=== PATIENT | female | born 1985 | race Two or more races ===

== ENCOUNTER 2024-06-15 11:57 | Emergency (ER) | payer OTHER ==
[~2024-06-15] VITALS: Ht 160 cm; Wt 68.9 kg
[2024-06-15] MEDS ORDERED: LABETALOL HCL100 MG (12:08)
[2024-06-15] MEDS ORDERED: ASPERCREME1 EACH (12:08)
[2024-06-15] MEDS ORDERED: PEPCID AC20 MG PO (13:39)
[2024-06-15] MEDS ORDERED: ZOFRAN8 MG PO (13:39)
[2024-06-15] MEDS ORDERED: OSEL75CA PO (13:39)
== END 2024-06-15 14:36 | disposition home or self-care (01) ==
LOC: ER 11:59
DX: O99.512 Diseases of the respiratory system complicating pregnancy, second trimester (principal); J11.1 Influenza due to unidentified influenza virus with other respiratory manifestations; Z3A.17 17 weeks gestation of pregnancy

== ENCOUNTER 2024-10-13 23:10 | Inpatient (IN) | payer OTHER ==
[~2024-10-13] VITALS: Ht 160 cm; Wt 72.1 kg
[~2024-10-13 23:10] MED LIST: ASPERCREME1 EACH; LABETALOL HCL100 MG; OSEL75CA PO; PEPCID AC20 MG PO; ZOFRAN8 MG PO
[2024-10-14] VITALS (7 sets, daily range): BP systolic 108–133; BP diastolic 64–80; O2SAT 97–98
[2024-10-14] MEDS ORDERED: AMPICILLIN SODIUM 2,000 MG VIAL ONE (00:38)
[2024-10-14] MEDS ORDERED: BETAMETHASONE ACETATE,SOD PHOS 30 MG/5 ML ML IM STA (00:47)
[2024-10-14] MEDS ORDERED: RINGERS SOLUTION,LACTATED 1,000 ML IV SCH (01:00)
[2024-10-14] MEDS ORDERED: AMPICILLIN SODIUM 2,000 MG VIAL IV ONE (01:00)
[2024-10-14 01:27] LABS: PH,URINE 6.5 (5.0-8.0); URINE APPEARANCE Clear; URINE BILIRRUBIN Negative (NEGATIVE); URINE BLOOD Negative; URINE COLOR Yellow; URINE GLUCOSE Negative (NEGATIVE); URINE LEUKOCYTE Negative; URINE NITRATE Negative; URINE PROTEIN Negative (NEGATIVE)
[2024-10-14 01:31] LABS: URINE BACTERIA 95.4 uL (0.0-1933); URINE EPITHELIAL CELLS 24.5 uL (0.0-38.8); URINE WBC 6.1 uL (0.0-23.2)
[2024-10-14 01:41] LABS: BASO % 0.2 % (0.1-1.2); EOS % 1.8 % (0.7-7.0); HEMOGLOBIN 10.1 g/dL (11.2-15.7); LYMPH # 2.24 (1.18-3.74); LYMPH % 20.6 % (19.3-53.1); MEAN CORPUSCULAR HEMOGLOBIN 28.2 pg (25.6-32.2); MONO # 0.52 (0.24-0.82); MONO % 4.8 % (4.7-12.5); NEUT # 7.87 (1.56-6.13); NEUT % 72.2 % (34.0-71.1); PLATELET COUNT 293 K/uL (163-369); RED BLOOD COUNT 3.58 M/uL (3.93-5.22); RED CELL DISTRIBUTION WIDTH 13.4 % (11.6-14.4)
[2024-10-14 01:44] LABS: URINE KETONE 80 (NEGATIVE)
[2024-10-14 01:49] LABS: INR 0.94; PARTIAL THROMBOPLASTIN TIME 26.9 SECONDS (22.0-34.0); PROTHROMBIN TIME 10.3 SECONDS (9.0-11.5)
[2024-10-14 02:05] LABS: ALBUMIN 2.7 gm/dL (3.4-5.0); BILIRUBIN TOTAL 0.32 mg/dL (0.3-1.2); CALCIUM 8.7 mg/dL (8.5-10.1); CREATININE SERUM 0.43 mg/dL (0.55-1.02); GFR 163.47; GLOBULINA 3.3 G/DL (2.4-3.5); POTASSIUM 3.81 mEq/L (3.5-5.1)
[2024-10-14] MEDS ORDERED: ADULT LOW DOSE81 M1 PO (03:33)
[2024-10-14] MEDS ORDERED: PRENATAL TABLE1 EAC1 PO (03:33)
[2024-10-14] MEDS ORDERED: PEPCID AC20 MG PO (03:34)
[2024-10-14] MEDS ORDERED: AMPICILLIN SODIUM 1,000 MG VIAL IV SCH (05:00)
[2024-10-15] MEDS ORDERED: BETAMETHASONE ACETATE,SOD PHOS 30 MG/5 ML ML IM ONE (01:00)
[2024-10-15] MEDS ORDERED: BETAMETHASONE ACETATE,SOD PHOS 30 MG/5 ML ML ONE (01:03)
[2024-10-15 03:01] VITALS: BP 111/66
[2024-10-15 06:50] VITALS: BP 128/71; O2SAT 97
[2024-10-15] MEDS ORDERED: FAMOTIDINE/PF 20 MG/2 ML VIAL ONE (10:22)
[2024-10-15 10:35] VITALS: BP 133/77
[2024-10-15] MEDS ORDERED: FAMOTIDINE/PF 20 MG/2 ML VIAL IV ONE (10:45)
[2024-10-15] MEDS ORDERED: ERYTHROMYCIN BASE OPHT 1GM EACH TUBE OP ONE (11:32)
[2024-10-15] MEDS ORDERED: OXYTOCIN 10 UNITS/ML VIAL ONE (11:32)
[2024-10-15] MEDS ORDERED: KETOROLAC TROMETHAMINE 60 MG VIAL IM ONE (15:00)
[2024-10-15] MEDS ORDERED: MORPHINE SULFATE 4 MG/ML VIAL IV ONE ×2 (16:25→17:40)
[2024-10-15] MEDS ORDERED: MORPHINE SULFATE 4 MG/ML CARTRIDGE IV SCH (17:00)
[2024-10-15 17:20] LABS: BASO % 0.1 % (0.1-1.2); HEMATOCRIT 29.9 % (34.1-44.9); HEMOGLOBIN 9.9 g/dL (11.2-15.7); LYMPH # 1.06 (1.18-3.74); MEAN CORPUSCULAR HEMOGLOBIN 27.8 pg (25.6-32.2); MONO # 0.35 (0.24-0.82); MONO % 2.6 % (4.7-12.5); NEUT # 11.85 (1.56-6.13); PLATELET COUNT 277 K/uL (163-369); RED BLOOD COUNT 3.56 M/uL (3.93-5.22); RED CELL DISTRIBUTION WIDTH 13.8 % (11.6-14.4)
[2024-10-15 18:23] VITALS: BP 148/87
[2024-10-15 23:50] VITALS: BP 134/81
[2024-10-16] MEDS ORDERED: SIMETHICONE 125 MG CAPSULE PO SCH (08:00)
[2024-10-16] MEDS ORDERED: OxyCODONE HCL/APAP UD (PERCOCET) PO PRN (08:00)
[2024-10-16] MEDS ORDERED: PNV,CALCIUM 72/IRON/FOLIC ACID 1 TAB TABLET PO SCH (08:00)
[2024-10-16] MEDS ORDERED: ACETAMINOPHEN 325 MG TABLET PO SCH (08:00)
[2024-10-16] MEDS ORDERED: DOCUSATE SODIUM 100MG CAP PO SCH (08:00)
[2024-10-16] MEDS ORDERED: OxyCODONE HCL 5 MG TABLET (ROXICODONE) PO PRN (08:00)
[2024-10-16 08:03] VITALS: BP 150/80
[2024-10-16 11:05] VITALS: BP 146/85
[2024-10-16 16:00] VITALS: BP 137/74
[2024-10-16 21:18] VITALS: BP 134/74
[2024-10-17 00:58] VITALS: BP 138/85
[2024-10-17 05:00] VITALS: BP 155/89
[2024-10-17 08:27] VITALS: BP 150/80
[2024-10-17 15:50] VITALS: BP 134/87
[2024-10-17 20:00] VITALS: BP 137/80
[2024-10-18 00:50] VITALS: BP 165/90
[2024-10-18 08:00] VITALS: BP 139/79
== END 2024-10-18 14:16 | disposition home or self-care (01) | DRG 783 ==
LOC: ER 23:36 → LDR 10-14 00:41 → O/R 10-15 13:15 → OB/GYN 10-15 14:34
PROVIDERS: ADMIT Obstetrics & Gynecology; ATTEND Obstetrics & Gynecology
PROC: 4A1HXCZ Monitoring of Products of Conception, Cardiac Rate, External Approach (ICD-10-PCS; 2024-10-14)
PROC: BY4FZZZ Ultrasonography of Third Trimester, Single Fetus (ICD-10-PCS; 2024-10-14)
PROC: BU4CZZZ Ultrasonography of Uterus and Ovaries (ICD-10-PCS; 2024-10-14)
PROC: 0UB70ZZ Excision of Bilateral Fallopian Tubes, Open Approach (ICD-10-PCS; 2024-10-15)
PROC: 10D00Z1 Extraction of Products of Conception, Low, Open Approach (ICD-10-PCS; principal; 2024-10-15 11:00)
DX: O42.013 Preterm premature rupture of membranes, onset of labor within 24 hours of rupture, third trimester (principal); O60.14X0 Preterm labor third trimester with preterm delivery third trimester, not applicable or unspecified; O41.03X0 Oligohydramnios, third trimester, not applicable or unspecified; O10.02 Pre-existing essential hypertension complicating childbirth; O26.843 Uterine size-date discrepancy, third trimester; O36.8130 Decreased fetal movements, third trimester, not applicable or unspecified; O34.211 Maternal care for low transverse scar from previous cesarean delivery; Z3A.34 34 weeks gestation of pregnancy; Z37.0 Single live birth; Z30.2 Encounter for sterilization